=== PATIENT | female | born 1965 | race African-American/Black ===

== ENCOUNTER 2022-07-22 01:21 | Emergency (ER) | payer SELFPAY ==
--- NOTE | 2022-07-22 01:45 | NUR ---
Patient was called to be triaged but was not present in the waiting room or outside of ER.
--- NOTE | 2022-07-22 02:05 | NUR ---
Patient was called to be triaged butg was not present.
--- NOTE | 2022-07-22 02:20 | NUR ---
Patient was not triaged or seen by [facility].
== END 2022-07-22 02:22 | disposition left against medical advice (07) ==
LOC: ER 01:46
DX: Z53.21 Procedure and treatment not carried out due to patient leaving prior to being seen by health care provider (principal)